=== PATIENT | male | born 1990 | race Caucasian/White ===

== ENCOUNTER 2020-07-15 21:14 | Emergency (ER) | payer OTHER ==
[~2020-07-15] VITALS: Ht 182.9 cm; Wt 107.5 kg
[2020-07-15] MEDS ORDERED: IBUPROFEN 800800 M1 PO (22:45)
[2020-07-15] MEDS ORDERED: ZANAFLEX4 MG PO (22:45)
[2020-07-16 01:32] VITALS: BP 120/70
== END 2020-07-16 01:32 | disposition home or self-care (01) ==
LOC: M.ERS 21:14
DX: S06.0X0A Concussion without loss of consciousness, initial encounter (principal); S16.1XXA Strain of muscle, fascia and tendon at neck level, initial encounter; V89.2XXA Person injured in unspecified motor-vehicle accident, traffic, initial encounter; Y93.89 Activity, other specified; Y92.89 Other specified places as the place of occurrence of the external cause; Y99.8 Other external cause status